=== PATIENT | male | born 1990 | race Caucasian/White ===

== ENCOUNTER → 2016-07-05 11:15 | Emergency (ER) | payer SELFPAY ==
[~2016-07-05 11:15] MED LIST: PPD test dose* 5 TU/0.1 ML TEST (*USE PPD ORDER SET*) ONE
== END | disposition home or self-care (01) ==
LOC: OHCORT 11:15
DX: R76.11 Nonspecific reaction to tuberculin skin test without active tuberculosis (principal)

== ENCOUNTER 2016-08-02 20:29 | Emergency (ER) | payer SELFPAY ==
[2016-08-02 21:03] VITALS: BP 137/109
[2016-08-02] MEDS ORDERED: Amoxicillin PO (*) 500 MG CAP PO ONE (21:13)
--- NOTE | 2016-08-02 21:34 | UC ---
Dental HPI - HPI Summary HPI Summary: pt reports breaking a tooth over 1 year ago. in last 5-7 days fractured tooth has been more painful and slightly swollen. Pt does not see a dentist on regualr basis, does not have dental insurance and reports dental care is not affordable. - History of Current Complaint Chief Complaint: UCDentalProblem Stated Complaint: TOOTH PAIN Time Seen by Provider: 08/02/16 20:46 Hx Obtained From: Patient Onset/Duration: Gradual Onset, Lasting Days Severity: Moderate Pain Intensity: 6 Pain Scale Used: 0-10 Numeric Aggravating: Chewing Related History: Swelling - Allergies/Home Medications Allergies/Adverse Reactions: Allergies Allergy/AdvReac Type Severity Reaction Status Date / Time No Known Allergies Allergy Verified 05/24/14 11:00 PMH/Surg Hx/FS Hx/Imm Hx - Additional Past Medical History Additional PMH: generalized poor dentition Previously Healthy: Yes - Surgical History Surgical History: Yes Surgery Procedure, Year, and Place: RT KNEE ACL RECONSTRUCTION - Family History Known Family History: Positive: Other - positive FMH for URI - Social History Lives: With Family Alcohol Use: Occasionally Substance Use Type: None Smoking Status (MU): Former Smoker Review of Systems Constitutional: Negative Skin: Negative Eyes: Negative ENT: Other - toothache Respiratory: Negative Cardiovascular: Negative Gastrointestinal: Negative Genitourinary: Negative Motor: Negative Neurovascular: Negative Musculoskeletal: Negative Neurological: Negative Psychological: Negative All Other Systems Reviewed And Are Negative: Yes Physical Exam Triage Information Reviewed: Yes Appearance: Well-Appearing Vital Signs: Initial Vital Signs Temp 99.1 F 08/02/16 20:57 Pulse 75 08/02/16 20:57 Resp 16 08/02/16 20:57 BP 137/109 08/02/16 20:57 Pulse Ox 99 08/02/16 20:57 Vital Signs Reviewed: Yes Eye Exam: Normal ENT Exam: Normal Dental Exam: Other Dental: Positive: Gross Decay/Caries @ - generalized, Dental Fracture @ - left canine Neck exam: Normal Respiratory Exam: Normal Cardiovascular Exam: Normal Musculoskeletal Exam: Normal Neurological Exam: Normal Psychological Exam: Normal Skin Exam: Normal Dental Complaint Course/Dx - Course Course Of Treatment: I discusseed with the pt the need to establish routine dental care. Pt said that he would seek care at dentist as needed and able to afford - Differential Dx/Diagnosis Differential Diagnosis/Dx: Dental Abscess, Fractured Tooth Provider Diagnoses: fracture tooth. dental abscess Discharge - Discharge Plan Condition: Stable Disposition: HOME Prescriptions: Amoxicillin CAP* [Amoxicillin 500 MG CAP*] 500 mg PO Q12H #14 cap Ibuprofen TAB* [Motrin TAB* 800 MG] 800 mg PO Q8HR #21 tab Patient Education Materials: Dental Abscess (ED) Forms: *Gen. Provider Communication Referrals: No Primary Care Phys,NOPCP [Primary Care Provider] - Additional Instructions: Please follow up with your dental care provider. It is important to have routine dental care.
== END 2016-08-02 21:22 | disposition home or self-care (01) ==
LOC: UCCORT 20:29
DX: K03.81 Cracked tooth (principal); K04.7 Periapical abscess without sinus; Z87.891 Personal history of nicotine dependence
CPT/HCPCS: 99212; A9270-GY; G0463